=== PATIENT | female | born 1980 | race Caucasian/White ===

== ENCOUNTER 2017-02-08 11:16 | Emergency (ER) | payer BC ==
[2017-02-08 11:43] VITALS: BP 142/95
[2017-02-08] MEDS ORDERED: Al Hydrox/Mg Hydrox/Simet LIQ* 30 ML UDC PO ONE (12:07)
[2017-02-08] MEDS ORDERED: Lidocaine 2% VISCOUS* 15 ML UDC PO ONE (12:08)
--- NOTE | 2017-02-08 12:13 | UC ---
Throat Pain/Nasal Rubens HPI - HPI Summary HPI Summary: pain on right side of throat after eating popcorn last night - History of Current Complaint Chief Complaint: UCGeneralIllness Stated Complaint: THROAT/FACE PAIN Time Seen by Provider: 02/08/17 11:54 Hx Obtained From: Patient Hx Last Menstrual Period: 02/05/17 ?: No Onset/Duration: Sudden Onset, Lasting Days - 1, Still Present Severity: Mild Pain Intensity: 3 Pain Scale Used: 0-10 Numeric Cough: None Associated Signs & Symptoms: Positive: Negative - Allergies/Home Medications Allergies/Adverse Reactions: Allergies Allergy/AdvReac Type Severity Reaction Status Date / Time Meloxicam [From [place] [facility]] Allergy Severe Stomach Verified 02/08/17 11:43 Cramps Home Medications: Home Medications Topiramate [Topamax 25 mg tab] 50 mg PO BID 02/08/17 [History Confirmed 02/08/17 ] PMH/Surg Hx/FS Hx/Imm Hx Previously Healthy: No Neurological History: Migraine - Surgical History Surgical History: Yes Surgery Procedure, Year, and Place: TUBAL LIGATION. ENDOMETRIAL ABLATION - Family History Known Family History: Positive: Hypertension - Social History Occupation: Employed Full-time Lives: With Family Alcohol Use: Rare Substance Use Type: None Smoking Status (MU): Never Smoked Tobacco Review of Systems Constitutional: Negative Skin: Negative Eyes: Negative ENT: Sore Throat Respiratory: Negative Cardiovascular: Negative Gastrointestinal: Negative Genitourinary: Negative Motor: Negative Neurovascular: Negative Musculoskeletal: Negative Neurological: Negative Psychological: Negative All Other Systems Reviewed And Are Negative: Yes Physical Exam Triage Information Reviewed: Yes Appearance: Well-Appearing, No Pain Distress, Well-Nourished Vital Signs: Initial Vital Signs Temp 98.4 F 02/08/17 11:39 Pulse 70 02/08/17 11:39 Resp 18 02/08/17 11:39 BP 142/95 02/08/17 11:39 Pulse Ox 100 02/08/17 11:39 Vital Signs Reviewed: Yes Eye Exam: Normal Eyes: Positive: Conjunctiva Clear ENT Exam: Normal ENT: Positive: Normal ENT inspection, Hearing grossly normal, Pharynx normal, TMs normal. Negative: Nasal congestion, Nasal drainage, Trismus, Muffled/ hoarse voice Dental Exam: Normal Neck exam: Normal Neck: Positive: Supple, Nontender, No Lymphadenopathy Respiratory Exam: Normal Respiratory: Positive: Chest non-tender, Lungs clear, Normal breath sounds, No respiratory distress, No accessory muscle use Cardiovascular Exam: Normal Cardiovascular: Positive: RRR, No Murmur, Pulses Normal, Brisk Capillary Refill Musculoskeletal Exam: Normal Musculoskeletal: Positive: Strength Intact, ROM Intact, No Edema Neurological Exam: Normal Neurological: Positive: Alert, Muscle Tone Normal Psychological Exam: Normal Skin Exam: Normal Diagnostics - Radiology No standard instances Xray Interpretation: Positive (See Comments) - no soft tissue swelling, fb noted Radiology Interpretation Completed By: Radiologist Re-Evaluation - Re-Evaluation First Eval Change: Improved - relieft with gi cocktail Throat Pain/Nasal Course/Dx - Course Assessment/Plan: carafate, Maalox, follow with pcp soft diet - Differential Dx/Diagnosis Differential Diagnosis/HQI/PQRI: Pharyngitis, Sinusitis, URI, Other - fb, esophagitis Provider Diagnoses: Esophogitis Discharge - Discharge Plan Condition: Stable Disposition: HOME Prescriptions: Sucralfate SUSP (NF) [Carafate SUSP (NF)] 1 gm PO Q6H #240 ml Patient Education Materials: Antacid, Calcium Containing (By mouth), Esophagitis (ED) Referrals: Randall Zayas MD [Primary Care Provider] - 3 Days
--- NOTE | 2017-02-08 12:47 | RAD ---
Indication: Foreign-body sensation in the throat radiating into the RIGHT ear. Ate popcorn last night. Severe pain. Comparison: February 03, 2014 CT neck. Technique: AP and lateral views of the neck with soft tissue technique. Report: No conspicuous foreign body evident. Pharyngeal, laryngeal, and tracheal air columns are normal in contour. Mild leftward deviation of the larynx and subglottic airway is unchanged compared with the February 03, 2014 CT without concern most consistent with normal variation. The epiglottis is normal. The cervical spine and prevertebral soft tissues are normal. IMPRESSION: No conspicuous foreign body evident. Negative exam.
== END 2017-02-08 13:16 | disposition home or self-care (01) ==
LOC: UCEAST 11:16
DX: K20.9 Esophagitis, unspecified (principal); G43.909 Migraine, unspecified, not intractable, without status migrainosus
CPT/HCPCS: 70360; 99202; A9270-GY; G0463

== ENCOUNTER 2019-10-19 12:06 | Emergency (ER) | payer BC ==
[2019-10-19 12:48] VITALS: BP 146/85
--- NOTE | 2019-10-19 13:12 | UC ---
FLU HPI - HPI Summary HPI Summary: 39-year-old female presenting with son for complaint of nonproductive cough, sore throat, and "chest tightness" since this morning. Denies sob and wheezing. Denies nasal congestion. Denies fever and chills. Denies decreased appetite and fluid intake. Patient states her daughter was diagnosed with influenza A yesterday. - History of Current Complaint Chief Complaint: UCGeneralIllness Stated Complaint: FLU SYMPTOMS Hx Obtained From: Patient Hx Last Menstrual Period: Pain Intensity: 4 Pain Scale Used: 0-10 Numeric - Allergy/Home Medications Allergies/Adverse Reactions: Allergies Allergy/AdvReac Type Severity Reaction Status Date / Time meloxicam [From [facility]] Allergy Stomach Verified 10/19/19 12:48 Cramps Home Medications: Home Medications Topiramate [Topamax 25 mg tab] 50 mg PO BID 02/08/17 [History Confirmed 10/19/19 ] Lisinopril TAB* [Prinivil TAB*] 20 mg PO DAILY 10/19/19 [History Confirmed 10/18] PMH/Surg Hx/FS Hx/Imm Hx - Surgical History Surgical History: Yes Surgery Procedure, Year, and Place: TUBAL LIGATION. ENDOMETRIAL ABLATION - Family History Known Family History: Positive: Hypertension - Social History Alcohol Use: Rare Substance Use Type: None Smoking Status (MU): Never Smoked Tobacco Review of Systems All Other Systems Reviewed And Are Negative: Yes Constitutional: Positive: Negative ENT: Positive: Sore Throat Respiratory: Positive: Cough. Negative: Shortness Of Breath Cardiovascular: Positive: Negative Gastrointestinal: Positive: Negative Musculoskeletal: Positive: Negative Neurological/Mental Status: Positive: Negative Physical Exam - Summary Physical Exam Summary: Vital Signs Reviewed: Yes A+Ox3, no distress, well-appearing Eyes: Conjunctiva Clear ENT: Hearing grossly normal, TM x 2 clear, moist, uvula midline, no exudate, no erythema Neck: Positive: Supple Respiratory: Positive: No respiratory distress, No accessory muscle use + CTA throughout no w/r Cardiovascular: RRR nl s1, s2 no m/r Musculoskeletal Exam: ALONSO x 4 without difficulty Neurological: Positive: Alert Psychological: Positive: age appropriate behavior Skin: Positive: no rash, no ecchymosis Vital Signs: Initial Vital Signs Temp 98.4 F 10/19/19 12:43 Pulse 79 10/19/19 12:43 Resp 16 10/19/19 12:43 BP 146/85 10/19/19 12:43 Pulse Ox 100 10/19/19 12:43 Lab Results 10/19/19 10/19/19 Range/Units 13:06 13:18 Influenza A (Rapid) Negative (Negative) Influenza B (Rapid) Negative (Negative) Group A Strep Rapid Negative (Negative) Flu Course/Dx - Course Course Of Treatment: Negative rapid strep and flu tests. Discussed viral illness with patient and instructed to continue symptomatic treatment. I offered the patient treatment with Tamiflu based on symptoms and exposure to the flu. Patient declined treatment with Tamiflu. Instructed to follow up with PCP for persistent or worsening symptoms. Patient voiced understanding and agreed with treatment plan. - Differential Dx/Diagnosis Differential Diagnosis/HQI/PQRI: Bronchitis, Influenza, Upper Respiratory Infection Provider Diagnosis: Nonproductive cough, Pharyngitis Discharge ED - Sign-Out/Discharge Documenting (check all that apply): Patient Departure All imaging exams completed and their final reports reviewed: No Studies - Discharge Plan Condition: Stable Disposition: HOME Patient Education Materials: Viral Syndrome (ED) Referrals: Randall Zayas MD [Primary Care Provider] - If Needed Additional Instructions: You tested negative for influenza and strep today. You may take over the counter cold and flu medications as directed for symptom relief. Get plenty of rest and increase your fluid intake. Follow up with your primary care provider if symptoms do not improve within 7 days. Go to the emergency room with any new or worsening symptoms. - Billing Disposition and Condition Condition: STABLE Disposition: Home
[2019-10-19 13:18] LABS: Influenza A Molecular Negative (Negative); Influenza B Molecular Negative (Negative)
== END 2019-10-19 13:40 | disposition home or self-care (01) ==
LOC: UCEAST 12:06
DX: J02.9 Acute pharyngitis, unspecified (principal); R05 Cough; Z88.8 Allergy status to other drugs, medicaments and biological substances
CPT/HCPCS: 87651; 99201; G0463